=== PATIENT | male | born 1950 | race Two or more races ===

== ENCOUNTER 2024-02-04 09:19 | Inpatient (IN) ==
[2024-02-04] MEDS: NOZIN NASAL SANITIZER TP ONE (10:20)
[2024-02-04] MEDS: LR 1,000 ML IV 1,000 ML IV ONE ×2 (10:36→14:19)
[2024-02-04] MEDS ORDERED: BARHEMSYS INJ IVP PRN (11:15)
[2024-02-04] MEDS ORDERED: BENADRYL INJ 50 MG VIAL IVP PRN (11:15)
[2024-02-04] MEDS ORDERED: REGLAN INJ 10 MG VIAL IVP PRN (11:15)
[2024-02-04] MEDS ORDERED: ZOFRAN INJ 4 MG VIAL IVP PRN (11:15)
[2024-02-04] MEDS: NS 100 ML IV 100 ML ONE (12:25)
[2024-02-04] MEDS: ANCEF VIAL 1 GRAM ONE (12:25)
[2024-02-04] MEDS ORDERED: SUPRANE ONE (12:30)
[2024-02-04] MEDS: VERSED ONE (12:32)
[2024-02-04] MEDS: PEPCID 20 MG VIAL ONE (12:32)
[2024-02-04] MEDS: QUELICIN (OR ANECTINE) ONE (12:32)
[2024-02-04] MEDS: BRIDION ONE ×2 (12:32→15:55)
[2024-02-04] MEDS: ZEMURON 100 MG VIAL ONE ×2 (12:32→15:05)
[2024-02-04] MEDS: DIPRIVAN VIAL 20 ML ONE (12:32)
[2024-02-04] MEDS: ZOFRAN INJ 4 MG VIAL ONE (12:32)
[2024-02-04] MEDS: FENTANYL VIAL INJ 100 mcg ONE ×2 (12:32→13:03)
[2024-02-04] MEDS: EPHEDRINE SULFATE INJ ONE (12:46)
[2024-02-04] MEDS: BACTROBAN TOPICAL OINT ONE (12:55)
[2024-02-04] MEDS: NORMODYNE INJ 20 MG VIAL ONE (13:18)
[2024-02-04] MEDS: DILAUDID INJ ONE ×2 (14:17→16:13)
[2024-02-04] MEDS: OFIRMEV IV 1000 MG VIAL 1,000 MG/100 ML VIAL IV ONE (14:24)
[2024-02-04] MEDS: POLYMYXIN B SULFATE ONE (15:25)
[2024-02-04] MEDS: DILAUDID INJ IVP PRN ×2 (16:14→17:24)
[2024-02-04] MEDS: D5 1/2 NS 1,000 ML 1,000 ML IV SCH (16:58)
[2024-02-04] MEDS: LEVAQUIN PREMIX IV 500 MG 500 MG/100 ML BAG IV SCH (17:23)
[2024-02-04] MEDS: PROTONIX INJ 40 MG VIAL IVP SCH (17:23)
[2024-02-04] MEDS: D5 1/2 NS 1,000 ML 1,000 ML IV ONE (18:49)
[2024-02-04 19:28] VITALS: BMI 26.7
[2024-02-05 05:42] LABS: BASOPHILS % (AUTO) 0.3 % (0.2-1.0); EOSINOPHILS % (AUTO) 0.1 % (0.9-2.9); HEMATOCRIT 40.3 % (42.0-54.0); HEMOGLOBIN 13.6 g/dL (13.5-18.0); LYMPHOCYTES # (AUTO) 1.6 X10^3/uL (1.3-2.9); LYMPHOCYTES % (AUTO) 11.2 % (21.0-51.0); MEAN CORPUSCULAR HEMOGLOBIN 32.5 pg (27.0-34.0); MEAN CORPUSCULAR HGB CONC 33.8 g/dL (33.0-35.0); MEAN CORPUSCULAR VOLUME 96.2 fL (80.0-100.0); MEAN PLATELET VOLUME 7.5 fL (7.4-11.0); MONOCYTES # (AUTO) 0.9 x10^3/uL (0.3-0.8); MONOCYTES % (AUTO) 6.4 % (0.0-13.0); NEUTROPHILS # (AUTO) 11.4 x10^3/uL (2.2-4.8); PLATELET COUNT 286 X10^3/uL (150.0-450.0); RED BLOOD COUNT 4.18 X10^6/uL (4.7-6.0); RED CELL DISTRIBUTION WIDTH 14.7 % (11.6-16.5); WHITE BLOOD COUNT 13.9 X10^3/uL (3.6-10.0)
[2024-02-05 05:53] LABS: ALANINE AMINOTRANSFERASE 96 Units/L (12-78); ALBUMIN 2.8 g/dL (3.4-5.0); ALKALINE PHOSPHATASE 214 Units/L (46-116); ASPARTATE AMINO TRANSFERASE 74 Units/L (15-37); BLOOD UREA NITROGEN 7 mg/dL (7-18); CALCIUM 9.1 mg/dL (8.5-10.1); CHLORIDE 103 mmol/L (98-107); COR CA(FOR HYPOALB) 10.1 mg/dL (8.5-10.1); COR NA(FOR HYPERGLY) 140 mmol/L (136-145); CREATININE 0.93 mg/dL (0.70-1.30); GLUCOSE 158 mg/dL (65-99); POTASSIUM 4.5 mmol/L (3.5-5.1); SODIUM 139 mmol/L (136-145); TOTAL PROTEIN 6.7 g/dL (6.4-8.2); eGFR NON BLACK RACES > 60 (>60)
[2024-02-05] MEDS: LOVENOX INJ 40 MG SYR SC SCH (09:17)
--- NOTE | 2024-02-05 10:12 | DR.PROGNOT ---
HOSPITAL PROGRESS NOTE Progress Note for Day of: Progress Note Date: 02/05/24 Chief Complaint Chief Complaint: This 73-year-old male who is status post diagnostic laparoscopy, lysis of adhesions, exploratory laparotomy with biopsy of the area of the re hepatis, cholecystostomy Patient is doing fairly well awake and alert, complaining of some incisional pain. White count is 13.9, his bilirubin 1.3, alkaline phosphatase 214. BUN/creatinine and electrolytes are normal, Mild drainage in the cholecystostomy tube and NG tube. Past Medical Family Social History Allergies: Allergies No Known Drug Allergies Allergy (Verified 04/15/20 13:39) Vital Signs Vital Signs: Vital Signs Temperature 98.3 F Temperature 98.1 F Pulse Rate 85 Pulse Rate 89 Respiratory Rate 18 Respiratory Rate 7 Respiratory Rate 10 Respiratory Rate 15 Blood Pressure 150/85 Blood Pressure 146/78 O2 Sat by Pulse Oximetry 96 O2 Sat by Pulse Oximetry 99 Physical Exam Oriented: Normal Eyes: Normal Ear: Normal Nose: Normal Respiratory: Normal Cardiovascular: Normal GI:Auscultation: Decreased GI:Palpation: Other (Moderate diffuse tenderness more towards the right upper quadrant.) Mood Description: Calm Speech Pattern: Appropriate Laboratory and Diagnostics 02/05/24 04:29 02/05/24 04:29 Labs: Laboratory WBC 13.9 X10^3/uL (3.6-10.0) H 02/05/24 04:29 RBC 4.18 X10^6/uL (4.7-6.0) L 02/05/24 04:29 Hgb 13.6 g/dL (13.5-18.0) 02/05/24 04:29 Hct 40.3 % (42.0-54.0) L 02/05/24 04:29 MCV 96.2 fL (80.0-100.0) 02/05/24 04:29 MCH 32.5 pg (27.0-34.0) 02/05/24 04:29 MCHC 33.8 g/dL (33.0-35.0) 02/05/24 04:29 RDW 14.7 % (11.6-16.5) 02/05/24 04:29 Plt Count 286 X10^3/uL (150.0-450.0) 02/05/24 04:29 MPV 7.5 fL (7.4-11.0) 02/05/24 04:29 Neut % (Auto) 82.0 % (42.0-75.0) H 02/05/24 04:29 Lymph % (Auto) 11.2 % (21.0-51.0) L 02/05/24 04:29 [place] % (Auto) 6.4 % (0.0-13.0) 02/05/24 04:29 Eos % (Auto) 0.1 % (0.9-2.9) L 02/05/24 04:29 Baso % (Auto) 0.3 % (0.2-1.0) 02/05/24 04:29 Neut # (Auto) 11.4 x10^3/uL (2.2-4.8) H 02/05/24 04:29 Lymph # (Auto) 1.6 X10^3/uL (1.3-2.9) 02/05/24 04:29 [place] # (Auto) 0.9 x10^3/uL (0.3-0.8) H 02/05/24 04:29 Eos # (Auto) 0.0 x10^3/uL (0.0-0.2) 02/05/24 04:29 Baso # (Auto) 0.0 X10^3/uL (0.0-0.1) 02/05/24 04:29 Absolute Nucleated RBC 0.0 /100WBC 02/05/24 04:29 Sodium 139 mmol/L (136-145) 02/05/24 04:29 Corrected Sodium 140 mmol/L (136-145) 02/05/24 04:29 Potassium 4.5 mmol/L (3.5-5.1) 02/05/24 04:29 Chloride 103 mmol/L (98-107) 02/05/24 04:29 Carbon Dioxide 31.0 mmol/L (21-32) 02/05/24 04:29 BUN 7 mg/dL (7-18) 02/05/24 04:29 Creatinine 0.93 mg/dL (0.70-1.30) 02/05/24 04:29 Est GFR (MDRD) Af Amer > 60 (>60) 02/05/24 04:29 Est GFR (MDRD) Non-Af > 60 (>60) 02/05/24 04:29 Glucose 158 mg/dL (65-99) H 02/05/24 04:29 Calcium 9.1 mg/dL (8.5-10.1) 02/05/24 04:29 Corrected Calcium 10.1 mg/dL (8.5-10.1) 02/05/24 04:29 Total Bilirubin 1.30 mg/dL (0.2-1.0) H 02/05/24 04:29 AST 74 Units/L (15-37) H 02/05/24 04:29 ALT 96 Units/L (12-78) H 02/05/24 04:29 Alkaline Phosphatase 214 Units/L (46-116) H 02/05/24 04:29 Total Protein 6.7 g/dL (6.4-8.2) 02/05/24 04:29 Albumin 2.8 g/dL (3.4-5.0) L 02/05/24 04:29 Globulin 3.9 g/dL (2.5-4.5) 02/05/24 04:29 Albumin/Globulin Ratio 0.7 Ratio (1.1-2.1) L 02/05/24 04:29 Assessment and Plan 1: Status post laparotomy, cholecystostomy and biopsy. 2: Calculus cholecystitis. Possible malignancy. To obtain CEA and CA 19-9 values. Same postoperative care, DVT prophylaxis, incentive spirometer and out of bed. Will start clear liquid today.
[2024-02-06 05:21] LABS: BASOPHILS % (AUTO) 0.4 % (0.2-1.0); EOSINOPHILS # (AUTO) 0.1 x10^3/uL (0.0-0.2); EOSINOPHILS % (AUTO) 0.7 % (0.9-2.9); HEMATOCRIT 36.6 % (42.0-54.0); HEMOGLOBIN 12.8 g/dL (13.5-18.0); LYMPHOCYTES # (AUTO) 1.9 X10^3/uL (1.3-2.9); MEAN CORPUSCULAR HEMOGLOBIN 33.1 pg (27.0-34.0); MEAN CORPUSCULAR HGB CONC 34.9 g/dL (33.0-35.0); MEAN CORPUSCULAR VOLUME 94.9 fL (80.0-100.0); MEAN PLATELET VOLUME 7.5 fL (7.4-11.0); MONOCYTES % (AUTO) 10.3 % (0.0-13.0); NEUTROPHILS # (AUTO) 6.4 x10^3/uL (2.2-4.8); NEUTROPHILS % (AUTO) 68.6 % (42.0-75.0); PLATELET COUNT 255 X10^3/uL (150.0-450.0); RED BLOOD COUNT 3.86 X10^6/uL (4.7-6.0); RED CELL DISTRIBUTION WIDTH 14.2 % (11.6-16.5); WHITE BLOOD COUNT 9.3 X10^3/uL (3.6-10.0)
[2024-02-06 05:28] LABS: ALANINE AMINOTRANSFERASE 64 Units/L (12-78); ALBUMIN 2.5 g/dL (3.4-5.0); ALKALINE PHOSPHATASE 167 Units/L (46-116); ASPARTATE AMINO TRANSFERASE 35 Units/L (15-37); BLOOD UREA NITROGEN 3 mg/dL (7-18); CALCIUM 9.1 mg/dL (8.5-10.1); CARBON DIOXIDE 31.4 mmol/L (21-32); CHLORIDE 100 mmol/L (98-107); COR CA(FOR HYPOALB) 10.3 mg/dL (8.5-10.1); COR NA(FOR HYPERGLY) 137 mmol/L (136-145); CREATININE 0.74 mg/dL (0.70-1.30); GLUCOSE 119 mg/dL (65-99); POTASSIUM 3.8 mmol/L (3.5-5.1); SODIUM 137 mmol/L (136-145); TOTAL PROTEIN 6.5 g/dL (6.4-8.2); eGFR NON BLACK RACES > 60 (>60)
[2024-02-06] MEDS ORDERED: CONSULT PHARMACY - POTASSIUM & MAGNESIUM XX SCH (07:00)
[2024-02-06] MEDS: MAG-OX TAB PO SCH (07:34)
[2024-02-06] MEDS: ATIVAN TAB 1 MG PO PRN (07:34)
[2024-02-06] MEDS: K-DUR TAB 20 MEQ PO SCH (07:34)
[2024-02-06] MEDS: D5 1/2 NS 1,000 ML 1,000 ML IV SCH (07:52)
--- NOTE | 2024-02-06 08:18 | DR.PROGNOT ---
HOSPITAL PROGRESS NOTE Progress Note for Day of: Progress Note Date: 02/06/24 Chief Complaint Chief Complaint: This 73-year-old male who is status post diagnostic laparoscopy, lysis of adhesions, exploratory laparotomy with biopsy of the area of the re hepatis, cholecystostomy Patient is doing fairly well awake and alert, complaining of some incisional pain.mild nausea . WBC 9.3, BILI, LFT are normal .. Alk PH 167. mild drainage in RORO and cholecystostomy bag . Past Medical Family Social History Past Med/Fam/Surg Hx: No changes since H&P Allergies: Allergies No Known Drug Allergies Allergy (Verified 04/15/20 13:39) Vital Signs Vital Signs: Vital Signs Temperature 98.2 F Pulse Rate 86 Respiratory Rate 29 Blood Pressure 163/87 O2 Sat by Pulse Oximetry 98 Physical Exam Oriented: Normal Eyes: Normal Ear: Normal Nose: Normal Respiratory: Normal Cardiovascular: Normal GI:Auscultation: Decreased GI:Palpation: Other (Moderate diffuse tenderness more towards the right upper quadrant.) Mood Description: Calm Speech Pattern: Appropriate Laboratory and Diagnostics 02/06/24 04:10 02/06/24 04:10 Labs: Laboratory WBC 9.3 X10^3/uL (3.6-10.0) 02/06/24 04:10 RBC 3.86 X10^6/uL (4.7-6.0) L 02/06/24 04:10 Hgb 12.8 g/dL (13.5-18.0) L 02/06/24 04:10 Hct 36.6 % (42.0-54.0) L 02/06/24 04:10 MCV 94.9 fL (80.0-100.0) 02/06/24 04:10 MCH 33.1 pg (27.0-34.0) 02/06/24 04:10 MCHC 34.9 g/dL (33.0-35.0) 02/06/24 04:10 RDW 14.2 % (11.6-16.5) 02/06/24 04:10 Plt Count 255 X10^3/uL (150.0-450.0) 02/06/24 04:10 MPV 7.5 fL (7.4-11.0) 02/06/24 04:10 Neut % (Auto) 68.6 % (42.0-75.0) 02/06/24 04:10 Lymph % (Auto) 20.0 % (21.0-51.0) L 02/06/24 04:10 [place] % (Auto) 10.3 % (0.0-13.0) 02/06/24 04:10 Eos % (Auto) 0.7 % (0.9-2.9) L 02/06/24 04:10 Baso % (Auto) 0.4 % (0.2-1.0) 02/06/24 04:10 Neut # (Auto) 6.4 x10^3/uL (2.2-4.8) H 02/06/24 04:10 Lymph # (Auto) 1.9 X10^3/uL (1.3-2.9) 02/06/24 04:10 [place] # (Auto) 1.0 x10^3/uL (0.3-0.8) H 02/06/24 04:10 Eos # (Auto) 0.1 x10^3/uL (0.0-0.2) 02/06/24 04:10 Baso # (Auto) 0.0 X10^3/uL (0.0-0.1) 02/06/24 04:10 Absolute Nucleated RBC 0.0 /100WBC 02/06/24 04:10 Sodium 137 mmol/L (136-145) 02/06/24 04:10 Corrected Sodium 137 mmol/L (136-145) 02/06/24 04:10 Potassium 3.8 mmol/L (3.5-5.1) 02/06/24 04:10 Chloride 100 mmol/L (98-107) 02/06/24 04:10 Carbon Dioxide 31.4 mmol/L (21-32) 02/06/24 04:10 BUN 3 mg/dL (7-18) L 02/06/24 04:10 Creatinine 0.74 mg/dL (0.70-1.30) 02/06/24 04:10 Est GFR (MDRD) Af Amer > 60 (>60) 02/06/24 04:10 Est GFR (MDRD) Non-Af > 60 (>60) 02/06/24 04:10 Glucose 119 mg/dL (65-99) H 02/06/24 04:10 Calcium 9.1 mg/dL (8.5-10.1) 02/06/24 04:10 Corrected Calcium 10.3 mg/dL (8.5-10.1) H 02/06/24 04:10 Magnesium 1.5 mg/dL (2.0-2.9) L 02/06/24 04:10 Total Bilirubin 1.00 mg/dL (0.2-1.0) 02/06/24 04:10 AST 35 Units/L (15-37) 02/06/24 04:10 ALT 64 Units/L (12-78) 02/06/24 04:10 Alkaline Phosphatase 167 Units/L (46-116) H 02/06/24 04:10 Total Protein 6.5 g/dL (6.4-8.2) 02/06/24 04:10 Albumin 2.5 g/dL (3.4-5.0) L 02/06/24 04:10 Globulin 4.0 g/dL (2.5-4.5) 02/06/24 04:10 Albumin/Globulin Ratio 0.6 Ratio (1.1-2.1) L 02/06/24 04:10 Assessment and Plan 1: Status post laparotomy, cholecystostomy and biopsy. 2: Calculus cholecystitis. Possible malignancy. To obtain CEA and CA 19-9 values. Same postoperative care, DVT prophylaxis, incentive spirometer and out of bed. Will start on full liquid . same IV ABT .
[2024-02-06] MEDS ORDERED: K-RIDER 10 MEQ/100 ML WATER 10 MEQ/100 ML BAG IV SCH (09:00)
[2024-02-06] MEDS: MICARDIS PO SCH (10:08)
[2024-02-06] MEDS: MAGNESIUM SULFATE 1 GRAM/100 mL PREMIX 1 G/100 ML BAG IV SCH (14:12)
[2024-02-06] MEDS: NORCO 5/325 MG TAB PO PRN (23:11)
[2024-02-07 05:39] LABS: BASOPHILS % (AUTO) 0.5 % (0.2-1.0); EOSINOPHILS # (AUTO) 0.1 x10^3/uL (0.0-0.2); HEMOGLOBIN 12.9 g/dL (13.5-18.0); LYMPHOCYTES # (AUTO) 1.6 X10^3/uL (1.3-2.9); LYMPHOCYTES % (AUTO) 27.1 % (21.0-51.0); MEAN CORPUSCULAR HEMOGLOBIN 32.8 pg (27.0-34.0); MEAN CORPUSCULAR HGB CONC 34.9 g/dL (33.0-35.0); MEAN CORPUSCULAR VOLUME 94.2 fL (80.0-100.0); MEAN PLATELET VOLUME 7.4 fL (7.4-11.0); MONOCYTES # (AUTO) 0.6 x10^3/uL (0.3-0.8); MONOCYTES % (AUTO) 10.3 % (0.0-13.0); NEUTROPHILS # (AUTO) 3.5 x10^3/uL (2.2-4.8); NEUTROPHILS % (AUTO) 60.1 % (42.0-75.0); PLATELET COUNT 305 X10^3/uL (150.0-450.0); RED BLOOD COUNT 3.93 X10^6/uL (4.7-6.0); RED CELL DISTRIBUTION WIDTH 14.4 % (11.6-16.5); WHITE BLOOD COUNT 5.8 X10^3/uL (3.6-10.0)
[2024-02-07 05:55] LABS: ALANINE AMINOTRANSFERASE 50 Units/L (12-78); ALBUMIN 2.6 g/dL (3.4-5.0); ALKALINE PHOSPHATASE 154 Units/L (46-116); ASPARTATE AMINO TRANSFERASE 26 Units/L (15-37); BLOOD UREA NITROGEN 3 mg/dL (7-18); CARBON DIOXIDE 31.3 mmol/L (21-32); CHLORIDE 100 mmol/L (98-107); COR CA(FOR HYPOALB) 10.1 mg/dL (8.5-10.1); COR NA(FOR HYPERGLY) 137 mmol/L (136-145); CREATININE 0.81 mg/dL (0.70-1.30); GLUCOSE 155 mg/dL (65-99); POTASSIUM 3.3 mmol/L (3.5-5.1); SODIUM 136 mmol/L (136-145); TOTAL PROTEIN 6.7 g/dL (6.4-8.2); eGFR NON BLACK RACES > 60 (>60)
[2024-02-07] MEDS ORDERED: CONSULT PHARMACY - POTASSIUM & MAGNESIUM XX SCH (06:00)
[2024-02-07] MEDS ORDERED: D5 1/2 NS + KCL 20 MEQ/L 1,000 ML with MAGNESIUM SULFATE 50% INJ VIAL 1 G IV SCH (08:00)
[2024-02-07] MEDS: MAG-OX TAB PO ONE (08:17)
[2024-02-07] MEDS: K-DUR TAB 20 MEQ PO SCH (08:17)
[2024-02-07 12:18] VITALS: BP 179/91; PULSE 82; TEMP 98.1; O2SAT 96
[2024-02-07 13:26] VITALS: RESP 20
== END 2024-02-07 13:20 | disposition home health service (06) | DRG 422 ==
LOC: SURG1 09:19 → ICU 09:19 → OBSVTOIN 16:35
PROVIDERS: ADMIT Surgery; ATTEND Surgery
DX: Z68.29 Body mass index [BMI] 29.0-29.9, adult; R63.4 Abnormal weight loss; R26.89 Other abnormalities of gait and mobility; K66.0 Peritoneal adhesions (postprocedural) (postinfection); E83.42 Hypomagnesemia; R74.01 Elevation of levels of liver transaminase levels; K80.10 Calculus of gallbladder with chronic cholecystitis without obstruction

== ENCOUNTER 2024-02-19 09:38 | Observation (INO) ==
[2024-02-19 12:43] LABS: BASOPHILS % (AUTO) 0.8 % (0.2-1.0); EOSINOPHILS # (AUTO) 0.1 x10^3/uL (0.0-0.2); EOSINOPHILS % (AUTO) 1.1 % (0.9-2.9); HEMATOCRIT 42.7 % (42.0-54.0); HEMOGLOBIN 14.8 g/dL (13.5-18.0); LYMPHOCYTES # (AUTO) 2.1 X10^3/uL (1.3-2.9); MEAN CORPUSCULAR HEMOGLOBIN 32.8 pg (27.0-34.0); MEAN CORPUSCULAR HGB CONC 34.6 g/dL (33.0-35.0); MEAN CORPUSCULAR VOLUME 94.9 fL (80.0-100.0); MEAN PLATELET VOLUME 6.8 fL (7.4-11.0); MONOCYTES # (AUTO) 0.4 x10^3/uL (0.3-0.8); MONOCYTES % (AUTO) 6.6 % (0.0-13.0); NEUTROPHILS # (AUTO) 3.1 x10^3/uL (2.2-4.8); NEUTROPHILS % (AUTO) 54.5 % (42.0-75.0); PLATELET COUNT 445 X10^3/uL (150.0-450.0); RED CELL DISTRIBUTION WIDTH 14.3 % (11.6-16.5); WHITE BLOOD COUNT 5.6 X10^3/uL (3.6-10.0)
[2024-02-19 12:53] LABS: ALANINE AMINOTRANSFERASE 29 Units/L (12-78); ALBUMIN 3.6 g/dL (3.4-5.0); ALKALINE PHOSPHATASE 130 Units/L (46-116); AMYLASE 90 Units/L (25-115); ASPARTATE AMINO TRANSFERASE 24 Units/L (15-37); BLOOD UREA NITROGEN 11 mg/dL (7-18); CALCIUM 9.9 mg/dL (8.5-10.1); CARBON DIOXIDE 25.6 mmol/L (21-32); CHLORIDE 99 mmol/L (98-107); GLUCOSE 103 mg/dL (65-99); LIPASE 105 Units/L (16-77); POTASSIUM 4.7 mmol/L (3.5-5.1); SODIUM 132 mmol/L (136-145); TOTAL PROTEIN 8.1 g/dL (6.4-8.2); eGFR NON BLACK RACES > 60 (>60)
[2024-02-19] MEDS: LEVAQUIN TAB 500 MG PO SCH (13:00)
[2024-02-19] MEDS: D5 1/2 NS 1,000 ML 1,000 ML IV SCH (13:01)
[2024-02-19 14:26] VITALS: BMI 25.4
--- NOTE | 2024-02-19 15:40 | CT ---
EXAM:ABDCMEN/PELVIS WITH CONHISTORY:Cholecystitis; PT STATES MD WAS UNABLE TO REMOVE GB, PUT A DRAIN IN GBCOMPARISON:11/12/2023.TECHNIQUE:Follow ing the intravenous administration of iodinated contrast, spiral CT imaging was performed through the abdomen and pelvis and axial, coronal, and sagittal CT images were generated.FINDINGS:The lung bases are clear without effusion. Heart size is normal. Liver is normal. There is cholelithiasis. There is a percutaneous cholecystostomy tube in position. There is a surgical incision in the upper abdomen with induration in the subcutaneous fat and in the muscular layer but no abscess or hematoma. There is a stone in the distal common bile duct. Pancreas, spleen, adrenal glands are normal. The kidneys are normal in size and enhancement without mass, stone, or hydronephrosis. There is urinary bladder wall thickening. Prostate gland is normal in size. The stomach is distended with fluid. Small bowel loops are unremarkable. The appendix is normal. There is stool and fluid throughout the colon. There is degeneration of the spine and in the hips but there is no worrisome bone marrow lesion.IMPRESSION:1. Cholelithiasis and choledocholithiasis with percutaneous cholecystostomy tube in position and no postsurgical complication identified.THIS IS AN ELECTRONICALLY VERIFIED FINAL [id number]/19/2024 3:37 PM - Electronically signed by Luisito Brock MD
[2024-02-19] MEDS: RESTORIL CAP 15 MG PO PRN (20:25)
[2024-02-20 05:58] LABS: BASOPHILS % (AUTO) 0.7 % (0.2-1.0); EOSINOPHILS # (AUTO) 0.2 x10^3/uL (0.0-0.2); EOSINOPHILS % (AUTO) 3.1 % (0.9-2.9); HEMOGLOBIN 13.2 g/dL (13.5-18.0); LYMPHOCYTES # (AUTO) 2.4 X10^3/uL (1.3-2.9); LYMPHOCYTES % (AUTO) 39.2 % (21.0-51.0); MEAN CORPUSCULAR HEMOGLOBIN 32.7 pg (27.0-34.0); MEAN CORPUSCULAR HGB CONC 34.8 g/dL (33.0-35.0); MEAN CORPUSCULAR VOLUME 94.1 fL (80.0-100.0); MEAN PLATELET VOLUME 7.1 fL (7.4-11.0); MONOCYTES # (AUTO) 0.7 x10^3/uL (0.3-0.8); MONOCYTES % (AUTO) 11.6 % (0.0-13.0); NEUTROPHILS # (AUTO) 2.7 x10^3/uL (2.2-4.8); NEUTROPHILS % (AUTO) 45.4 % (42.0-75.0); PLATELET COUNT 359 X10^3/uL (150.0-450.0); RED BLOOD COUNT 4.04 X10^6/uL (4.7-6.0); RED CELL DISTRIBUTION WIDTH 13.8 % (11.6-16.5); WHITE BLOOD COUNT 6.1 X10^3/uL (3.6-10.0)
[2024-02-20 06:11] LABS: ALANINE AMINOTRANSFERASE 27 Units/L (12-78); ALBUMIN 3.1 g/dL (3.4-5.0); ALKALINE PHOSPHATASE 106 Units/L (46-116); ASPARTATE AMINO TRANSFERASE 22 Units/L (15-37); BLOOD UREA NITROGEN 12 mg/dL (7-18); CALCIUM 9.4 mg/dL (8.5-10.1); CARBON DIOXIDE 26.2 mmol/L (21-32); CHLORIDE 100 mmol/L (98-107); COR CA(FOR HYPOALB) 10.1 mg/dL (8.5-10.1); GLUCOSE 99 mg/dL (65-99); POTASSIUM 3.9 mmol/L (3.5-5.1); SODIUM 135 mmol/L (136-145); TOTAL PROTEIN 6.9 g/dL (6.4-8.2); eGFR NON BLACK RACES > 60 (>60)
[2024-02-20] MEDS: LOVENOX INJ 40 MG SYR SC SCH (11:21)
[2024-02-20] MEDS: NS 100 ML IV 100 ML ONE (14:13)
[2024-02-20] MEDS: NS 1,000 ML IV 1,000 ML ONE (14:13)
[2024-02-20] MEDS: ZOSYN VIAL 3.375 GRAMS IV ONE (14:16)
[2024-02-20] MEDS: VISIPAQUE 50 ML ONE (14:23)
[2024-02-20] MEDS: VERSED ONE (14:50)
--- NOTE | 2024-02-20 16:21 | DR.PROGNOT ---
HOSPITAL PROGRESS NOTE Progress Note for Day of: Progress Note Date: 02/20/24 Chief Complaint Chief Complaint: Patient is feeling better with better . Improved appetite but still having large amount of drainage through the cholecystostomy tube. Cholecystogram via cholecystostomy tube revealed somewhat dilated common bile duct with choledocholithiasis, no obstruction with easy filling of the duodenum without contrast material. Lab work showed normal liver function tests as well as CBC. All britta were removed and the RORO was removed, there is no drainage at all within the RORO. Patient needs ERCP and stenting to reduce the bile drainage through the gallbladder. This will be arranged and patient will be discharged in the morning. Past Medical Family Social History Allergies: Allergies No Known Drug Allergies Allergy (Verified 02/19/24 09:19) Vital Signs Vital Signs: Vital Signs Temperature 98.0 F Temperature 98.2 F Temperature 97 F Pulse Rate [Brachial] 82 Pulse Rate [Brachial] 85 Pulse Rate [Left Radial] 83 Pulse Rate 85 Pulse Rate 85 Pulse Rate 91 Pulse Rate 87 Pulse Rate 88 Respiratory Rate 18 Respiratory Rate 18 Respiratory Rate 17 Respiratory Rate 17 Respiratory Rate 18 Respiratory Rate 18 Respiratory Rate 18 Respiratory Rate 18 Blood Pressure [Left Arm] 117/62 Blood Pressure [Left Arm] 129/68 Blood Pressure [Left Arm] 122/71 Blood Pressure 127/79 Blood Pressure 128/75 Blood Pressure 133/76 Blood Pressure 141/86 Blood Pressure 128/79 O2 Sat by Pulse Oximetry 97 O2 Sat by Pulse Oximetry 97 O2 Sat by Pulse Oximetry 99 O2 Sat by Pulse Oximetry 99 O2 Sat by Pulse Oximetry 98 O2 Sat by Pulse Oximetry 98 O2 Sat by Pulse Oximetry 97 O2 Sat by Pulse Oximetry 97 Physical Exam Oriented: Normal Eyes: Normal Ear: Normal Nose: Normal Throat: Normal Respiratory: Normal Cardiovascular: Normal : Normal GI:Auscultation: Normal GI:Palpation: Normal GI: Tenderness: Other (The abdomen is soft and flat, no wound infection and the RORO was removed.) Speech Pattern: Clear and Appropriate Laboratory and Diagnostics 02/20/24 05:25 02/20/24 05:25 Labs: Laboratory WBC 6.1 X10^3/uL (3.6-10.0) 02/20/24 05:25 RBC 4.04 X10^6/uL (4.7-6.0) L 02/20/24 05:25 Hgb 13.2 g/dL (13.5-18.0) L 12/04/24 05:25 Hct 38.0 % (42.0-54.0) L 02/20/24 05:25 MCV 94.1 fL (80.0-100.0) 02/20/24 05:25 MCH 32.7 pg (27.0-34.0) 02/20/24 05:25 MCHC 34.8 g/dL (33.0-35.0) 02/20/24 05:25 RDW 13.8 % (11.6-16.5) 02/20/24 05:25 Plt Count 359 X10^3/uL (150.0-450.0) 02/20/24 05:25 MPV 7.1 fL (7.4-11.0) L 02/20/24 05:25 Neut % (Auto) 45.4 % (42.0-75.0) 02/20/24 05:25 Lymph % (Auto) 39.2 % (21.0-51.0) 02/20/24 05:25 [place] % (Auto) 11.6 % (0.0-13.0) 02/20/24 05:25 Eos % (Auto) 3.1 % (0.9-2.9) H 02/20/24 05:25 Baso % (Auto) 0.7 % (0.2-1.0) 02/20/24 05:25 Neut # (Auto) 2.7 x10^3/uL (2.2-4.8) 02/20/24 05:25 Lymph # (Auto) 2.4 X10^3/uL (1.3-2.9) 02/20/24 05:25 [place] # (Auto) 0.7 x10^3/uL (0.3-0.8) 02/20/24 05:25 Eos # (Auto) 0.2 x10^3/uL (0.0-0.2) 02/20/24 05:25 Baso # (Auto) 0.0 X10^3/uL (0.0-0.1) 02/20/24 05:25 Absolute Nucleated RBC 0.0 /100WBC 02/20/24 05:25 Sodium 135 mmol/L (136-145) L 02/20/24 05:25 Corrected Sodium TNP 02/20/24 05:25 Potassium 3.9 mmol/L (3.5-5.1) 02/20/24 05:25 Chloride 100 mmol/L (98-107) 02/20/24 05:25 Carbon Dioxide 26.2 mmol/L (21-32) 02/20/24 05:25 BUN 12 mg/dL (7-18) 02/20/24 05:25 Creatinine 1.00 mg/dL (0.70-1.30) 02/20/24 05:25 Est GFR (MDRD) Af Amer > 60 (>60) 02/20/24 05:25 Est GFR (MDRD) Non-Af > 60 (>60) 02/20/24 05:25 Glucose 99 mg/dL (65-99) 02/20/24 05:25 Calcium 9.4 mg/dL (8.5-10.1) 02/20/24 05:25 Corrected Calcium 10.1 mg/dL (8.5-10.1) 02/20/24 05:25 Total Bilirubin 0.70 mg/dL (0.2-1.0) 02/20/24 05:25 AST 22 Units/L (15-37) 02/20/24 05:25 ALT 27 Units/L (12-78) 02/20/24 05:25 Alkaline Phosphatase 106 Units/L (46-116) 02/20/24 05:25 Total Protein 6.9 g/dL (6.4-8.2) 02/20/24 05:25 Albumin 3.1 g/dL (3.4-5.0) L 02/20/24 05:25 Globulin 3.8 g/dL (2.5-4.5) 02/20/24 05:25 Albumin/Globulin Ratio 0.8 Ratio (1.1-2.1) L 02/20/24 05:25 Amylase 90 Units/L (25-115) 02/19/24 12:28 Lipase 105 Units/L (16-77) H 02/19/24 12:28 Assessment and Plan 1: Common bile duct stones. Gallstones. 2: Status post cholecystostomy tube. Same plan for now with IV antibiotics and IV fluid. Future ERCP and placement of stent. Discharge in the morning.
[2024-02-21 06:04] LABS: BASOPHILS # (AUTO) 0.1 X10^3/uL (0.0-0.1); BASOPHILS % (AUTO) 0.9 % (0.2-1.0); EOSINOPHILS # (AUTO) 0.2 x10^3/uL (0.0-0.2); EOSINOPHILS % (AUTO) 2.9 % (0.9-2.9); HEMATOCRIT 40.8 % (42.0-54.0); LYMPHOCYTES # (AUTO) 3.5 X10^3/uL (1.3-2.9); LYMPHOCYTES % (AUTO) 55.5 % (21.0-51.0); MEAN CORPUSCULAR HEMOGLOBIN 32.9 pg (27.0-34.0); MEAN CORPUSCULAR HGB CONC 34.4 g/dL (33.0-35.0); MEAN CORPUSCULAR VOLUME 95.5 fL (80.0-100.0); MEAN PLATELET VOLUME 7.2 fL (7.4-11.0); MONOCYTES # (AUTO) 0.6 x10^3/uL (0.3-0.8); MONOCYTES % (AUTO) 9.2 % (0.0-13.0); NEUTROPHILS % (AUTO) 31.5 % (42.0-75.0); PLATELET COUNT 408 X10^3/uL (150.0-450.0); RED BLOOD COUNT 4.27 X10^6/uL (4.7-6.0); RED CELL DISTRIBUTION WIDTH 14.1 % (11.6-16.5); WHITE BLOOD COUNT 6.4 X10^3/uL (3.6-10.0)
[2024-02-21 06:22] LABS: ALANINE AMINOTRANSFERASE 31 Units/L (12-78); ALBUMIN 3.4 g/dL (3.4-5.0); ALKALINE PHOSPHATASE 116 Units/L (46-116); ASPARTATE AMINO TRANSFERASE 24 Units/L (15-37); BLOOD UREA NITROGEN 9 mg/dL (7-18); CALCIUM 9.4 mg/dL (8.5-10.1); CARBON DIOXIDE 25.9 mmol/L (21-32); CHLORIDE 103 mmol/L (98-107); CREATININE 0.94 mg/dL (0.70-1.30); GLUCOSE 84 mg/dL (65-99); SODIUM 138 mmol/L (136-145); TOTAL PROTEIN 7.5 g/dL (6.4-8.2); eGFR NON BLACK RACES > 60 (>60)
[2024-02-21 08:07] VITALS: RESP 18; O2SAT 98
[2024-02-21 11:46] VITALS: BP 124/74; PULSE 77; TEMP 97.4
--- NOTE | 2024-02-21 16:49 | DR.CONSULT ---
Consult - Consultation for Day of: Date: 02/21/24 (GI) - Chief Complaint Chief Complaint: Abd pain, nausea, vomiting - History of Present Illness History of Present Illness: Patient is a 73 y/o male who is referred for ERCP. Patient has complaints of upper abdominal pain, nausea, and vomiting. Also reports weakness and poor appetite. Patient had attempted cholecystecomy recently, however due to adhesions, unable to be completed. Cholecystostomy tube in place. Abd/pelvis CT showed Cholelithiasis and choledocholithiasis with percutaneous cholecystostomy tube in position and no postsurgical complication identified. Patient is status post recent laparotomy, extensive laparotomy, excessive adhesions around the gallbladder, biopsy of the omentum and [id number]. Placement of a cholecystostomy tube and drainage. The patient is known to have calculous cholecystitis for which he underwent diagnostic laparoscopy and then laparotomy, biopsy of the gallbladder and omentum. There was found suspicion for malignancy but all pathology reports came back benign. The patient is draining a moderate amount of bile through the cholecystostomy tube. No significant drainage through the Jesus-Cheng drain. He is feeling somewhat weak and dehydrated. He looks moderately anemic. He has a poor appetite. - Past Surgical History Surgical History: Abdominal Surgery, Cholecystectomy - Family History Family Medical History: Sudden Cardiac - Social History Does any household member use tobacco: No Alcohol Use: None Drug Use: None - Medications Home Medications: No Known Drug Allergies Allergy (Verified 02/19/24 09:19) - Review of Systems Constitutional: Weakness. denies: No Symptoms Reported, See HPI, Fever, Chills, Sweats, Malaise, Other Eyes: No Symptoms Reported. denies: See HPI, Pain, Vision Change, Conjunctivae Inflammation, Eyelid Inflammation, Redness, Other ENT: No Symptoms Reported. denies: See HPI, Ear Pain, Ear Discharge, Nose Pain, Nose Discharge, Nose Congestion, Mouth Pain, Mouth Swelling, Throat Pain, Throat Swelling, Other Respiratory: No Symptoms Reported. denies: See HPI, Cough, Dry, Shortness of Breath, Hemoptysis, SOB with Excertion, Pleuritic Pain, Sputum, Wheezing, Other Cardiovascular: No Symptoms Reported. denies: Chest Pain, See HPI, Palpitati ons, Orthopnea, Paroxysmal Noc. Dyspnea, Edema, Light Headedness, Other Gastrointestinal: See HPI, Nausea, Vomiting, Abdominal Pain. denies: No Symptoms Reported, Diarrhea, Constipation, Melena, Hematochezia, Other Genitourinary: No Symptoms Reported. denies: See HPI, Dysuria, Frequency, Incontinence, Hematuria, Retention, Other Musculoskeletal: No Symptoms Reported. denies: See HPI, Shoulder Pain, Arm Pain, Back Pain, Hand Pain, Leg Pain, Foot Pain, Neck Pain, Other Skin: No Symptoms Reported. denies: See HPI, Rash, Lesions, Jaundice, Bruising, Wound, Ecchymosis, Other Neurological: No Symptoms Reported. denies: See HPI, Weakness, Numbness, Incoordination, Change in Speech, Confusion, Seizures, Other - Physical Exam Vital Signs: Vital Signs Temperature 97.4 F Pulse Rate [Brachial] 77 Respiratory Rate 18 Blood Pressure [Left Arm] 124/74 O2 Sat by Pulse Oximetry 98 Oriented: Normal. negative: Time, Person, Place, Not Oriented, Unable to test, Other Eyes: Normal. negative: Blurred Vision, Diplopia, Discharge, Pain, Redness, Photophobia, Other Ear: negative: Normal, Right, Left, Swelling, Ecchymosis, Hemotypanum, Abrasion, Laceration Nose: negative: Normal, Injected, Discharge, Blood, Other Throat: negative: Normal, Tonsillar Hypertrophy, Red, Exudate, Dry, Other Respiratory: Clear Throughout. negative: Diminished Throughout, Rhonchi Throughout, Rales Throughout, Wheezes Throughout, RUL Clear, RML Clear, RLL Clear, DANYA Clear, LML Clear, LLL Clear, RUL Diminished, RML Diminished, RLL Diminished, DANYA Diminished, LML Diminished, LLL Diminished, RUL Absent, RML Absent, RLL Absent, DANYA Absent, LML Absent, LLL Absent, RUL Rhonchi, RML Rhonchi, RLL Rhonchi, DANYA Rhonchi, LML Rhonchi, LLL Rhonchi, RUL Insp. Wheeze, RML Insp. Wheeze, RLL Insp. Wheeze, DANYA Insp.Wheeze, LML Insp.Wheeze, LLL Insp.Wheeze, RUL Exp. Wheeze, RML Exp. Wheeze, RLL Exp. Wheeze, DANYA Exp. Wheeze, LML Exp. Wheeze, LLL Exp. Wheeze, RUL Rales, RML Rales, RLL Rales, DANYA Rales, LML Rales, LLL Rales, RUL Rub, RML Rub, RLL Rub, DANYA Rub, LML Rub, LLL Rub, RUL Squeak, RML Squeak, RLL Squeak, DANYA Squeak, LML Squeak, LLL Squeak Cardiovascular: Normal. negative: Tachycardia, Bradycardia, Irregular, S3, S4, Systolic, Diastolic, Murmur, Edema, Other : Normal. negative: Dysuria, Hematuria, Frequency, Discharge, Testicular Pain, Bleeding, , Other Auscultation: Bowel Sounds: Normal. negative: Bruit, Absent, Increased, Decreased, High Pitched, Other Palpation: negative: Normal, Spleen Enlarged, Liver Enlarged, Mass Pulsatile, Other Tenderness: RUQ. negative: Normal, Diffuse, RLQ, LUQ, LLQ, Epigastric, Periumbilical, Suprapubic, Mild, Moderate, Severe, Rebound, Guarding, Rigidity, Other Skin: Normal. negative: Decreased Turgur, Rash, Papular, Macular, Maculopapular, Vesicular, Pustular, Petechial, Red, Tender, Hot, Diaphoresis, Wound, Bruising, Ecchymosis, Other Musculoskeletal: Normal. negative: Right, Left, Shoulder, Clavicle, Arm, Elbow, Forearm, Wrist, Hand, Hip, Thigh, Knee, Leg, Ankle, Foot, Back:Thoracic, Back:Lumbar, Back:Midline, Back:Paraspinous, Pelvis, Swelling, Tender, Deformity, Pulse Deficit, Motor Deficit, Sensory Deficit, Instability, Crepitance Psychiatric: Normal. negative: Anxiety, Depression, Agitation, Other Mood Description: Calm, Appropriate. negative: Angry, Apathetic, Depressed, Fearful, Flat, Happy, Hostile, Sad, Suspicious, Withdrawn, Anxious, Labile Affect: Normal. negative: Angry, Anxious, Depressed, Flat, Hysterical, Quiet, Violent Speech Pattern: Clear, Appropriate. negative: Unclear, Inappropriate, Delayed, Slurred, Excessive, Aphasic, Artificially Ventilated, Trach(not ventilated), Unable to speak - Plan Plan: Assessment. 1. Choledocholithiasis, with abnormal LFTs, LFTs improved after drain placement. Plan: Patient will be scheduled for outpatient ERCP. Plan D/W Dr. Conde - Allergies Allergies/Adverse Reactions: Allergies Allergy/AdvReac Type Severity Reaction Status Date / Time No Known Drug Allergies Allergy Verified 02/19/24 09:19
== END 2024-02-21 11:55 | disposition home health service (06) ==
LOC: MED/SURG
PROVIDERS: ADMIT Surgery; ATTEND Surgery
DX: K81.2 Acute cholecystitis with chronic cholecystitis; E86.0 Dehydration; D64.89 Other specified anemias; R10.84 Generalized abdominal pain; K85.90 Acute pancreatitis without necrosis or infection, unspecified; R63.4 Abnormal weight loss; E87.1 Hypo-osmolality and hyponatremia; Z98.890 Other specified postprocedural states; K66.0 Peritoneal adhesions (postprocedural) (postinfection); R11.2 Nausea with vomiting, unspecified; R94.5 Abnormal results of liver function studies